=== PATIENT | female | born 1970 | race Caucasian/White ===

== ENCOUNTER 2019-04-27 08:57 | Emergency (ER) | payer OTHER, SELFPAY ==
[2019-04-27 09:14] VITALS: BP 122/77; PULSE 71; RESP 20; TEMP 36.5; O2SAT 100
--- NOTE | 2019-04-27 09:36 | ED.GENADULT ---
HPI - General Adult General Chief complaint: Upper Respiratory Infection Stated complaint: Cough/Stuffy Nose Time Seen by Provider: 04/27/19 09:37 Source: patient Mode of arrival: ambulatory Limitations: no limitations History of Present Illness HPI narrative: This is a 48 years old female presented to the office for an evaluation cough since this morning. Associated with runny nose. Denies vomiting or diarrhea. Her daughter was sick a week ago with cold symptoms. She used to smoke 2 pack, quit a year ago now only do E cigarettes. NO treatment prior to arrival. Related Data Home Medications Medication Instructions Recorded Confirmed bupropion HCl mg PO 04/27/19 escitalopram oxalate mg 04/27/19 hydrocodone-ibuprofen tablet 04/27/19 levothyroxine 04/27/19 olmesartan-hydrochlorothiazide tablet 04/27/19 [Benicar HCT] semaglutide [Ozempic] mg SUBCUT 04/27/19 Allergies Allergy/AdvReac Type Severity Reaction Status Date / Time metformin AdvReac Abdominal Verified 04/27/19 09:28 Pain Review of Systems Review of Systems: Narrative: CONSTITUTIONAL: Denies fever, chills, sweats. ENT: Reports runny nose, scratchy throat. Denies ears pain CARDIOVASCULAR: Denies chest pain, palpitation RESPIRATORY: Denies dyspnea, wheezing. Reports cough GASTROINTESTINAL: Denies abdominal pain, nausea, vomiting, diarrhea. GENITOURINARY: Denies urinary symptoms SKIN: Denies rash MUSCULOSKELETAL: Denies acute back pain NEUROLOGIC: Denies lightheaded PMFSH Social History Social History (Updated 04/27/19 @ 09:48 by ELIGIO Bond) Smoking status: Former smoker Tobacco type: e-cigarettes Comments At time of signature, I agree with nursing past medical, surgical, social and family history. There is no relevant family history pertinent to the presenting complaint. Exam Narrative: Exam Narrative: GENERAL: This is a well-nourished, well-developed patient, in no apparent distress. EYES: Sclera clear/white. Vision is grossly intact. EARS: External ears normal, auditory canals clear and without drainage, TMs normal without perforation. Hearing grossly intact. NOSE: External nose normal with no obvious nasal discharge, nares without redness, no rhinorrhea. THROAT: Mucous membranes moist, posterior pharynx clear. NECK: Neck supple, non-tender without lymphadenopathy, masses or thyromegaly. CARDIOVASCULAR: Regular rate and rhythm without murmurs, gallops, or rubs. RESPIRATORY: Clear to auscultation with occasional cough during deep breathe. Breath sounds equal bilaterally. No wheezes, rales, or rhonchi. GASTROINTESTINAL: Abdomen soft, non-tender, nondistended. Bowel sounds are active.No guarding. SKIN: warm, intact with no suspicious lesions or rash, good texture and turgor. NEURO: awake, alert, and oriented to person, place and time. There were no obvious focal neurologic abnormalities. Steady gait Mikhail Coma Scale Eye Opening: Spontaneous 4 [place] Coma Scale Motor: Obeys Commands 6 Mikhail Coma Scale Verbal: Oriented 5 Course Vital Signs Vital signs: Vital Signs Temperature 97.7 F 04/27/19 09:14 Pulse Rate 71 04/27/19 09:14 Respiratory Rate 04/27/19 09:14 Blood Pressure 122/77 04/27/19 09:14 Pulse Oximetry 100 04/27/19 09:14 Temperature 97.7 F 04/27/19 09:14 Pulse Rate 71 04/27/19 09:14 Respiratory Rate 04/27/19 09:14 Blood Pressure 122/77 04/27/19 09:14 Pulse Oximetry 100 04/27/19 09:14 Medical Decision Making MDM Narrative Medical decision making narrative: Discharge instructions reviewed with patient, as well as provided in writing per nursing staff. The instructions also include specific and strict return/GO TO THE ER as well as f/u information. All questions have been answered, and the patient deny any further questions with discharge and discharge plan. Differential Diagnosis Differential Diagnosis: pneumonia, Allergic Rhinitis, Upper respiratory coug
== END 2019-04-27 10:10 | disposition home or self-care (01) ==
PROVIDERS: Emergency Provider Nurse Practitioner; PCP Internal Medicine
DX: J06.9 Acute upper respiratory infection, unspecified (principal); F17.200 Nicotine dependence, unspecified, uncomplicated; E11.9 Type 2 diabetes mellitus without complications; E03.9 Hypothyroidism, unspecified
CPT/HCPCS: 87804; 99213; G0463

== ENCOUNTER 2023-12-26 08:28 | Outpatient (CLI) | payer OTHER, SELFPAY ==
--- NOTE | ~2023-12-26 | MM_ITS ---
EXAMINATION: MM screening isaiah BI w conchis HISTORY: Screening mammogram TECHNIQUE: Craniocaudal and mediolateral oblique 3-D tomosynthesis images were obtained and synthetic 2-D images were generated. CAD analysis was submitted and interpreted. COMPARISON: 02/28/2019 BREAST PARENCHYMAL COMPOSITION:Not Dense. There are scattered areas of fibroglandular density. FINDINGS: No suspicious mass, calcification, or architectural distortion are identified in either yanet ast to suggest malignancy. There has been no suspicious interval change. IMPRESSION: No mammographic evidence of malignancy. Recommend routine screening mammography in one year. BI-RADS Category 1: Negative Reviewed, dictated and finalized at location . [facility]
== END 2023-12-26 08:29 | disposition home or self-care (01) ==
PROVIDERS: PCP Internal Medicine; Visit Provider Obstetrics & Gynecology
DX: Z12.31 Encounter for screening mammogram for malignant neoplasm of breast (principal)
CPT/HCPCS: 77063; 77067